=== PATIENT | female | born 1970 | race Caucasian/White ===

== ENCOUNTER 2017-11-20 10:47 | Day surgery (SDC) | payer MEDICARE, MEDICAID ==
[~2017-11-20 10:47] MED LIST: Buffered Lidocaine 0.9% SYRIN* 5 ML/SYR SYRINGE INTRADERM ONE
[2017-11-20] MEDS ORDERED: Lidocaine 2% PF * 5 ML VIAL ONE ×2 (10:59→11:48)
[2017-11-20] MEDS ORDERED: Propofol* 10 MG/ML 20 ML BTL IV PUSH ONE ×3 (10:59→12:29)
--- NOTE | 2017-11-21 07:56 | PRO ---
CC: Dr. North * DATE OF PROCEDURE: 11/20/17 - [facility] PROCEDURE PERFORMED: Esophagogastroduodenoscopy and colonoscopy complete to terminal ileum. INDICATION FOR PROCEDURE: Occult positivity, rule out GI loss. MEDICATIONS GIVEN: See Anesthesia record. DESCRIPTION OF PROCEDURE: After the EGD and colonoscopy procedures including the risks, benefits, and alternatives not limited to perforation, surgery, and/ or were explained to the patient, written consent was then obtained. Medication was given by the anesthesia service and bite-block was placed between the teeth. The Olympus gastroscope was then inserted into the patient' s mouth, advanced down the esophagus, into the stomach, and the distal duodenum. In the esophagus, at 35 cm in the mid esophagus, there were 2 to 3 linear ulcerations about 2 to 3 cm long, quite fibrotic on biopsy. I did biopsy both of these and send them to rule out herpes and CMV. At the distal esophagus, the GE junction was at 35 cm and grossly intact. Biopsies were obtained to rule out microscopic changes. The scope was advanced through a patent lower esophageal sphincter into the stomach. She had diffuse hemorrhagic gastritis. On retroflexion, she had a small sliding hiatal hernia. I took biopsies of the gastritis. In addition, I took a biopsy for CLOtesting. There were no distinct ulcerations or erosions in the stomach, however, but there was some scattered old blood that was evident. The scope was then advanced through a widely patent pylorus into the duodenal bulb, which was normal in appearance and into the C-loop, which was also normal in appearance. The distal duodenum appeared normal as well. The scope was then withdrawn from the patient. She was turned around and given an additional IV medication per the anesthesia service. A rectal exam was performed. It was unremarkable. The Olympus colonoscope was then inserted into the patient's rectum and advanced very carefully through the entirety of the colon and into the cecal base. Careful and thorough inspection of the cecal base did not reveal any abnormalities. The terminal ileum identified and intubated times 4 to 5 cm and normal in appearance. The quality of the preparation was good. Over the next 8 minutes, the scope was carefully withdrawn inspecting the mucosa. At the hepatic flexure, a 0.4 cm polyp was removed with cold snare polypectomy. Good hemostasis was achieved and a specimen was retrieved and the polypectomy site was confirmed. The scope was continued to be withdrawn to the rectum. Direct views were normal. On retroflexion, she did have grade 1 internal hemorrhoids. The scope was then withdrawn from the patient. The preparation was good. She tolerated the procedure well and returned to the recovery room in stable condition. IMPRESSION: 1. Complete colonoscopy into the cecum with terminal ileal intubation. 2. Hepatic flexure colon polyp removed with cold snare polypectomy, 0.4 cm as above. 3. Complete upper endoscopy into the distal duodenum with biopsies. 4. Esophageal linear ulcerations at the mid esophagus, biopsied to rule out HSV and CMV. 5. Distal esophagus biopsied to rule out microscopic reflux disease. 6. Diffuse hemorrhagic gastritis, biopsied and also sent for CLOtesting. 7. Sliding hiatal hernia. 8. Normal appearing duodenum, biopsied to rule out malabsorption. RECOMMENDATIONS: At this time, she should be placed on twice a day PPI therapy , however with her anti retroviral therapy options are limited Should avoid any NSAID therapy. I suspect this may be NSAID injury in terms of her hemorrhagic gastritis. We will await biopsies. She will need a repeat colonoscopy in 5 years because of a likely adenoma. Try to avoid any NSAIDs to prevent any further injury. If her hemoglobin remains stable, I do not think any further workup is needed for her occult positivity. I suspect this was from the hemorrhagic gastritis. If she was to become more anemic, I would recommend a capsule endoscopy at that point to evaluate the small bowel. [id number]/[facility] #: [id number] RAKAN
== END 2017-11-20 15:00 | disposition home or self-care (01) ==
LOC: OR 10:47
PROVIDERS: ATTEND Internal Medicine Gastroenterology
DX: K29.71 Gastritis, unspecified, with bleeding (principal); D12.3 Benign neoplasm of transverse colon; K21.9 Gastro-esophageal reflux disease without esophagitis; Z72.0 Tobacco use; E78.5 Hyperlipidemia, unspecified; Z21 Asymptomatic human immunodeficiency virus [HIV] infection status
CPT/HCPCS: 87077; 88305; 88342; J2704

== ENCOUNTER 2018-03-20 07:23 | Day surgery (SDC) | payer MEDICARE, MEDICAID ==
[~2018-03-20 07:23] MED LIST changes: -Buffered Lidocaine 0.9% SYRIN* 5 ML/SYR SYRINGE INTRADERM ONE; +Buffered Lidocaine 1% SYRIN* 1 ML/SYRINGE INTRADERM ONE; +Lactated Ringers 1000 ML Bag* 1,000 ML IV SCH
[2018-03-20] MEDS ORDERED: Lidocaine 4% TOPICAL* 50 ML TOP.SOLN ONE (08:34)
[2018-03-20] MEDS ORDERED: Lidocaine 2% PF * 5 ML VIAL ONE (08:34)
[2018-03-20] MEDS ORDERED: Propofol* 10 MG/ML 20 ML BTL ONE (08:34)
[2018-03-20] MEDS ORDERED: fentaNYL* 50 MCG/ML 2 ML VIAL (100 MCG VIAL) ONE (08:47)
[2018-03-20] MEDS ORDERED: DiMENhydriNATE IV* 50 MG/ML VIAL IV PUSH PRN (08:58)
[2018-03-20] MEDS ORDERED: Levalbuterol 0.63MG/3ML NEB* UNIT OF USE INH PRN (08:58)
[2018-03-20] MEDS ORDERED: Naloxone* 0.4 MG/ML 1 ML VIAL IV PRN (08:58)
[2018-03-20] MEDS ORDERED: Ondansetron INJ* 2 MG/ML VIAL IV PRN (08:58)
[2018-03-20 09:27] VITALS: BP 99/60
--- NOTE | 2018-03-20 13:17 | PRO ---
CC: Dr. North * ESOPHAGOGASTRODUODENOSCOPY REPORT: DATE OF PROCEDURE: 03/20/18 PRIMARY CARE PHYSICIAN: Dr. North. INFECTIOUS DISEASE: Dr. Adi Gr at [facility]. INDICATION FOR PROCEDURE: Erosive esophagitis. PROCEDURE PERFORMED: Complete esophagogastroduodenoscopy with biopsies. MEDICATIONS GIVEN: Please see anesthesia record. DESCRIPTION OF PROCEDURE: After the EGD procedure, including the risks, benefits, and alternatives, with the risks not limited to perforation, surgery, missed lesions, and/or were explained to the patient, written and informed consent was obtained. IV medication was given by the anesthesia service and a bite-block was placed between the teeth. The adult Olympus gastroscope was inserted into the oropharynx and into the tubular esophagus. The tubular esophagus had less than 1 cm of variability at the Z-line, I did biopsy just to rule out Lowery's. Her previous erosive esophagitis has healed completely at this point. There is a small sliding 1 to 2 cm hiatal hernia. The scope was advanced to the lower esophageal sphincter and into the stomach. She had some mild wagoner gastritis, I did take a biopsy and also sent a biopsy for DARLENE testing. On retroflexion, the aforementioned hiatal hernia was visualized. The scope was advanced through a widely patent pylorus into the duodenal bulb, C -loop and distal duodenum, which were all completely normal in appearance. The scope was then removed from the patient. She tolerated the procedure well. She returned to the recovery room in stable condition. IMPRESSION: 1. Complete esophagogastroduodenoscopy with biopsies. 2. Healed erosive esophagitis. 3. Less than 1 cm of variability, biopsied to rule out Lowery's. 4. Wagoner gastritis, biopsied. 5. Normal duodenum. RECOMMENDATIONS: Decrease PPI to daily at this point. I do fear that she may be a risk for reflux in the future, however, upon recent switch of her antiretroviral therapy, there has been a bump in her transaminases. The bump seems to be relatively minor and she seems to be accommodating at this time. We will await results of biopsies, if this is Lowery's esophagus, she will need to be on a long- term acid medicine irregardless. Depending on the biopsy results and her symptomatology, we will discuss with her infectious disease doctor best approach for going forward for her. [id number]/[facility] #: [id number] RAKAN
== END 2018-03-20 09:40 | disposition home or self-care (01) ==
LOC: OR 07:23
PROVIDERS: ATTEND Internal Medicine Gastroenterology
DX: K22.10 Ulcer of esophagus without bleeding (principal); K29.00 Acute gastritis without bleeding; J44.9 Chronic obstructive pulmonary disease, unspecified; R79.89 Other specified abnormal findings of blood chemistry; G89.4 Chronic pain syndrome; Z79.891 Long term (current) use of opiate analgesic; Z21 Asymptomatic human immunodeficiency virus [HIV] infection status; F31.9 Bipolar disorder, unspecified; J45.998 Other asthma
CPT/HCPCS: 87077; 88305; 88312; 88342; J2704; J3010